=== PATIENT | female | born 1975 | race African-American/Black ===

== ENCOUNTER 2019-04-01 17:01 | Emergency (ER) | payer SELFPAY ==
[~2019-04-01] VITALS: Ht 165.1 cm; Wt 68.2 kg
[2019-04-01 17:05] VITALS: Ht 165.1 cm; Wt 68.2 kg
[2019-04-01 17:32] LABS: APPEARANCE CLEAR (CLEAR); BILIRUBIN NEGATIVE (NEGATIVE); COLOR YELLOW (YELLOW); GLUCOSE NEGATIVE (NEGATIVE); KETONE NEGATIVE (NEGATIVE); NITRITE NEGATIVE (NEGATIVE); PROTEIN NEGATIVE (NEGATIVE); SPECIFIC GRAVITY 1.015 (1.005-1.020); UROBILINOGEN NORMAL (NORMAL)
[2019-04-01 17:34] LABS: HCG URINE NEGATIVE (NEGATIVE)
[2019-04-01 17:48] LABS: UDS - AMPHET NEGATIVE QUAL (NEGATIVE); UDS - BARB NEGATIVE QUAL (NEGATIVE); UDS - BENZO NEGATIVE QUAL (NEGATIVE); UDS - COCAINE NEGATIVE QUAL (NEGATIVE); UDS - OPIATE NEGATIVE QUAL (NEGATIVE); UDS - PCP NEGATIVE QUAL (NEGATIVE); UDS - THC POSITIVE QUAL (NEGATIVE)
[2019-04-01 17:58] LABS: BASOPHILS 0.2 % (0-2); EOSINOPHILS 0.2 % (0-7); HEMATOCRIT 43.1 % (36.0-48.0); HEMOGLOBIN 14.7 g/dL (12-16); IMMATURE GRANULOCYTES 0.2 % (0-5); LYMPHOCYTES 12.1 % (15-50); MCH 29.9 pg (26.0-34.0); MCHC 34.1 g/dL (31.0-37.0); MCV 87.8 fL (80.0-100.0); MEAN PLATELET VOLUME 10.2 fL (7.4-10.4); MONOCYTES 5.2 % (2-11); NEUTROPHILS 82.1 % (40-80); PLATELET COUNT 121 10x3/uL (130-400); RBC 4.91 10x6/uL (4.00-5.40); RDW 12.8 % (11.5-14.5)
[2019-04-01 18:12] LABS: ALBUMIN 2.8 g/dL (3.4-5.0); ANION GAP 14.7 mmol/L (8-16); BILIRUBIN - TOTAL 0.33 mg/dL (0.2-1.3); CALCIUM 8.2 mg/dL (8.5-10.1); CARBON DIOXIDE 21.9 mmol/L (21.0-32.0); POTASSIUM - SERUM 3.6 mmol/L (3.5-5.1); PROTEIN - SERUM 5.4 g/dL (6.4-8.2)
[2019-04-01 18:37] VITALS: BP 124/83
== END 2019-04-01 18:38 | disposition home or self-care (01) ==
LOC: EDBD 17:01 → D.ER 17:01
PROVIDERS: Family Medicine
DX: F41.0 Panic disorder [episodic paroxysmal anxiety] (principal)

== ENCOUNTER 2019-05-09 11:56 | Emergency (ER) | payer MEDICAID ==
[~2019-05-09] VITALS: Ht 165.1 cm; Wt 63.6 kg
[2019-05-09 11:58] VITALS: Ht 165.1 cm; Wt 63.6 kg
[2019-05-09 12:44] LABS: ALBUMIN 3.6 g/dL (3.4-5.0); ALKALINE PHOSPHATASE 47 U/L (46-116); ALT (SGPT) 20 U/L (10-68); BASOPHILS 0.1 % (0-2); BILIRUBIN - TOTAL 0.56 mg/dL (0.2-1.3); CALC OSMOLALITY 277 mosm/kg (275-300); CALCIUM 8.6 mg/dL (8.5-10.1); CARBON DIOXIDE 32.7 mmol/L (21.0-32.0); CHLORIDE - SERUM 104 mmol/L (98-107); CREATININE - SERUM 0.6 mg/dL (0.6-1.3); EOSINOPHILS 0.5 % (0-7); GLUCOSE 89 mg/dL (74-106); HEMATOCRIT 42.4 % (36.0-48.0); HEMOGLOBIN 14.3 g/dL (12-16); IMMATURE GRANULOCYTES 0.3 % (0-5); LYMPHOCYTES 12.6 % (15-50); MCHC 33.7 g/dL (31.0-37.0); MCV 88.9 fL (80.0-100.0); MEAN PLATELET VOLUME 10.6 fL (7.4-10.4); MONOCYTES 8.1 % (2-11); NEUTROPHILS 78.4 % (40-80); PLATELET COUNT 127 10x3/uL (130-400); POTASSIUM - SERUM 4.1 mmol/L (3.5-5.1); PROTEIN - SERUM 6.6 g/dL (6.4-8.2); RBC 4.77 10x6/uL (4.00-5.40); RDW 13.1 % (11.5-14.5); SODIUM 141 mmol/L (136-145); UREA NITROGEN 8 mg/dL (7-18); WBC 7.3 10x3/uL (4.8-10.8); eGFR NON AFRICAN AMERICAN > 90 mL/min (90-120)
[2019-05-09 12:48] LABS: AMYLASE - SERUM 79 U/L (25-115); LIPASE 502 U/L (73-393)
[2019-05-09 12:50] LABS: TROPONIN-I < 0.017 ng/mL (0.000-0.060)
[2019-05-09 12:58] LABS: APPEARANCE CLEAR (CLEAR); BILIRUBIN NEGATIVE (NEGATIVE); COLOR YELLOW (YELLOW); EPITHELIAL CELLS OCC /hpf (0-5); GLUCOSE NEGATIVE (NEGATIVE); KETONE NEGATIVE (NEGATIVE); NITRITE NEGATIVE (NEGATIVE); PROTEIN NEGATIVE (NEGATIVE); RED CELLS - URINE 0-5 /hpf (0-5); UROBILINOGEN NORMAL (NORMAL); WHITE CELLS - URINE RARE /hpf (NEGATIVE)
[2019-05-09 12:59] LABS: BACTERIA FEW /hpf (NEGATIVE); MUCUS <1+ /lpf (NONE SEEN)
[2019-05-09 13:48] LABS: HCG URINE NEGATIVE (NEGATIVE)
[2019-05-09 14:32] VITALS: BP 112/69
[2019-05-09] MEDS ORDERED: FLORASTOR250 MG PO (14:58)
[2019-05-09] MEDS ORDERED: LEVSIN/ANASP0.125 MG PO (14:58)
[2019-05-09] MEDS ORDERED: CYCLOBENZAPRINE10 MG PO (14:59)
[2019-05-09] MEDS ORDERED: IBUPROFEN800 MG PO (14:59)
[2019-05-09] MEDS ORDERED: ACETAMINOPHEN500 M1 PO (14:59)
[2019-05-09] MEDS ORDERED: ZOFRAN ODT4 MG/UDTAB PO (15:01)
== END 2019-05-09 15:20 | disposition home or self-care (01) ==
LOC: D.ER 11:56
PROVIDERS: Family Medicine
DX: R10.32 Left lower quadrant pain (principal); R19.7 Diarrhea, unspecified; F17.210 Nicotine dependence, cigarettes, uncomplicated